=== PATIENT | male | born 1940 | race Caucasian/White ===

== ENCOUNTER 2022-02-17 13:03 | Emergency (ER) | payer MEDICARE, OTHER ==
[2022-02-17 13:43] LABS: BILIRUBIN,URINE NEGATIVE (NEGATIVE); GLUCOSE, URINE (UA) NEGATIVE (NEGATIVE); KETONES,URINE (UA) NEGATIVE (NEGATIVE); LEUKOCYTE ESTERASE, URINE NEGATIVE (NEGATIVE); NITRITE,URINE NEGATIVE (NEGATIVE); OCCULT BLOOD,URINE NEGATIVE (NEGATIVE); PH,URINE 5.5 PH (5.0-7.5); PROTEIN,URINE NEGATIVE (NEGATIVE); UROBILINOGEN,URINE 0.2 (NORMAL) E.U./dL (NORMAL)
[2022-02-17 13:48] LABS: BACTERIA,URINE None Seen /HPF (None Seen); CLARITY,URINE CLEAR (CLEAR); RBC,URINE None Seen /HPF (0-5); SQUAMOUS EPITHELIAL CELL,UR FEW Squamous (<= Few); WBC,URINE 0-3 /HPF (0-3)
--- NOTE | 2022-02-17 15:22 | ED Physician Documentation ---
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) Timing - duration: Hours Timing - details: Abrupt onset, Still present Pain level max: 9 Pain level now: 9 Location: Mid, Lower, Left Quality: Pain, Sharp, Aching Associated symptoms: No: Fever, Weakness, Numbness Improves with: No: Rest Worsened by: No: Movement, Lifting Contributing factors: No: Lifting, Twisting, Trauma Similar symptoms before: Diagnosis (similar to prior kidney stone, with last one about 15 years ago.) Recently seen: Not recently seen Review of Systems Constitutional: denies: Fever, Chills Nose: denies: Rhinorrhea / runny nose, Congestion Throat: denies: Sore throat Respiratory: denies: Cough GI: reports: Abdominal Pain, Nausea, Vomiting. denies: Constipation, Diarrhea : denies: Dysuria, Frequency Skin: denies: Rash, Lesions PD PAST MEDICAL HISTORY - Past Medical History Cardiovascular: Hypertension Respiratory: None Neuro: None Endocrine/Autoimmune: None : Kidney stones - Present Medications Home Medications: Ambulatory Orders Medication Instructions Recorded Confirmed Naproxen 500 mg PO BID #15 tab.sr 02/17/22 Ondansetron Odt [Zofran] 4 mg TL Q6H PRN #10 tablet 02/17/22 Oxycodone HCl/Acetaminophen 1 each PO Q6H PRN #14 tablet 02/17/22 [Percocet 5-325 mg Tablet] Tamsulosin [Flomax] 0.4 mg PO DAILY #5 cap 02/17/22 - Allergies Allergies/Adverse Reactions: Allergies Allergy/AdvReac Type Severity Reaction Status Date / Time Penicillins Allergy Rash Verified 02/17/22 13:25 PD ED PE NORMAL - Vitals Vital signs reviewed: Yes - General General: Alert and oriented X 3, Well developed/nourished, Other (appears in considerable pain.) - Cardiac Cardiac: RRR, No murmur - Respiratory Respiratory: Clear bilaterally - Abdomen Abdomen: Normal bowel sounds, Soft, Non tender, Non distended, Other (normal femoral pulses) - Back Back: Other (moderate left CVA tenderness to percussion. ) - Derm Derm: Normal color, Warm and dry, No rash - Neuro Neuro: Alert and oriented X 3, No motor deficit, No sensory deficit, Normal speech Results - Vitals Vitals: Vital Signs - 24 hr 02/17/22 02/17/22 16:09 16:30 Heart Rate 65 66 Respiratory 14 14 Rate Blood Pressure 128/64 128/65 O2 Saturation 97 96 Oxygen O2 Source Room air - Labs Labs: Laboratory Tests 02/17/22 02/17/22 02/17/22 13:40 15:45 15:45 WBC 13.4 H RBC 4.41 L Hgb 14.0 Hct 40.6 L MCV 92.1 MCH 31.7 H MCHC 34.5 RDW 12.8 Plt Count 243 MPV 10.2 Neut # (Auto) 10.6 H Lymph # (Auto) 1.5 [place] # (Auto) 1.0 Eos # (Auto) 0.1 Baso # (Auto) 0.0 Absolute Nucleated RBC 0.00 Nucleated RBC % 0.0 Sodium 134 L Potassium 4.3 Chloride 100 L Carbon Dioxide 23 Anion Gap 11.0 BUN 29 H Creatinine 1.2 Estimated GFR (MDRD) 58 L Glucose 128 H Calcium 9.4 Urine Color YELLOW Urine Clarity CLEAR Urine pH 5.5 Ur Specific [place] >=1.030 H Urine Protein NEGATIVE Urine Glucose (UA) NEGATIVE Urine Ketones NEGATIVE Urine Occult Blood NEGATIVE Urine Nitrite NEGATIVE Urine Bilirubin NEGATIVE Urine Urobilinogen 0.2 (NORMAL) Ur Leukocyte Esterase NEGATIVE Urine RBC None Seen Urine WBC 0-3 Ur Squamous Epith Cells FEW Squamous Urine Bacteria None Seen - Rads (name of study) KUB CT Radiology: Prelim report reviewed (4 mm distal left ureteral stone with moderate hydro. Bilateral nonobstructing renal stones. ), See rad report PD MEDICAL DECISION MAKING - ED course Complexity details: reviewed results (4 mm left distal ureteral stone with mild hydronephrosis. ), re-evaluated patient (pain greatly improved with IV meds. Minimal pain now and declines further meds in ED. ), considered differential (sounds and he feels like kidney stone. Was 2 hour delay in waiting room due to ER staffing shortage. Patient understanding and polite. ), d/w patient Departure - Departure Disposition: 01 Home, Self Care Clinical Impression: Left flank pain, Ureterolithiasis Condition: Stable Record reviewed to determine appropriate education?: Yes Instructions: ED Stone Renal W Colic Prescriptions: Tamsulosin [Flomax] 0.4 mg PO DAILY #5 cap Naproxen 500 mg PO BID #15 tab.sr Oxycodone HCl/Acetaminophen [Percocet 5-325 mg Tablet] 1 each PO Q6H PRN #14 tablet PRN Reason: pain Ondansetron Odt [Zofran] 4 mg TL Q6H PRN #10 tablet PRN Reason: Nausea / Vomiting Comments: It isYour CT scan does confirm a kidney stone passing on the left ureter. Almost to the bladder and is small at just under 4 mm. There is a mild amount of back pressure swelling to the kidney. Your urine test does not show any signs of infection. It is good that your pain is improved and sorry it took so long for us to get you out of the waiting room. We typically treat the kidney stones with anti- inflammatories and tamsulosin to reduce ureteral spasming. To that stay well-hydrated and add ondansetron if needed for nausea. Add Tylen ol or oxycodone/acetaminophen if needed for worse pains. The majority of stones of this size will pass over 2 to 3 days. Follow-up if not improved well completely after 3 to 5 days return sooner if severe pain despite medications. I transmitted prescriptions to [facility] in [place]. I am prescribing a short course of narcotic pain medication for you. These are potentially dangerous and addictive medications that should be used carefully. These medications may constipate you. Take an [id number] stool softener such as docusate twice daily with plenty of water while taking these medications. If you go 24 hours without a bowel movement, take ejpe-[id number] MiraLAX, per package instructions. Do not drink or drive while taking these medications. If you received narcotic or sedating medications while in the emergency department do not drive for 24 hours. Store this medication in a safe, secure place and out of reach of children. It is a violation of federal law to give or sell this medication to another person or to use in a manner other than prescribed. The ED will not refill narcotic prescriptions, including prescriptions lost or stolen. You can dispose of unwanted medications at the [facility]'s office or at several pharmacies such as [facility]. Discharge Date/Time: 02/17/22 17:03
[2022-02-17] MEDS ORDERED: KETOROLAC 15 MG/ML VIAL IVP STA (15:34)
[2022-02-17] MEDS ORDERED: HYDROmorphone 1 MG/ML CARPUJECT IVP STA (15:34)
[2022-02-17] MEDS ORDERED: SODIUM CHLORIDE 0.9% 1,000 ML IV STA (15:34)
[2022-02-17] MEDS ORDERED: ONDANSETRON 4 MG/2 ML VIAL IVP STA (15:34)
[2022-02-17 15:50] LABS: BASOPHILS % (AUTO) 0.2 %; EOSINOPHILS # (AUTO) 0.1 10^3/uL (0.0-0.7); EOSINOPHILS % (AUTO) 0.7 %; HCT - HEMATOCRIT 40.6 % (42.0-52.0); LYMPHOCYTES # (AUTO) 1.5 10^3/uL (1.5-3.5); LYMPHOCYTES % (AUTO) 11.2 %; MEAN CORPUSCULAR HEMOGLOBIN 31.7 pg (27.0-31.0); MEAN CORPUSCULAR HGB CONC 34.5 g/dL (32.0-36.0); MEAN CORPUSCULAR VOLUME 92.1 fL (80.0-94.0); MEAN PLATELET VOLUME 10.2 fL (7.4-11.4); MONOCYTES % (AUTO) 7.7 %; NEUTROPHILS # (AUTO) 10.6 10^3/uL (1.5-6.6); NEUTROPHILS % (AUTO) 79.6 %; PLT - PLATELET COUNT 243 10^3/uL (130-450); RED BLOOD COUNT 4.41 10^6/uL (4.70-6.10); RED CELL DISTRIBUTION WIDTH 12.8 % (12.0-15.0); WHITE BLOOD COUNT 13.4 x10^3/uL (4.8-10.8)
[2022-02-17 15:58] LABS: CALCIUM 9.4 mg/dL (8.5-10.3); CREATININE 1.2 mg/dL (0.6-1.2); POTASSIUM 4.3 mmol/L (3.5-5.0)
[2022-02-17] MEDS ORDERED: TAMSULOSIN 0.4 MG CAPSULE PO STA (16:26)
--- NOTE | 2022-02-17 16:29 | CT Report ---
PROCEDURE: Abdomen/Pelvis WO INDICATIONS: left flank pain onset today TECHNIQUE: Noncontrast 5 mm thick sections acquired from the diaphragms to the symphysis. 5 mm coronal and sagi ttal reformats were then performed. For radiation dose reduction, the following was used: automated exposure control, adjustment of mA and/or kV according to patient size. COMPARISON: None. FINDINGS: Image quality: Excellent. ABDOMEN: Lung bases: Lung bases are clear. Heart size is mildly enlarged with small amount of pericardial ef fusion. Solid organs: Liver and spleen are normal in size. Gallbladder is within normal limits Pancreas is normal in contours. No adrenal nodules. Kidneys are normal in size. Moderate left-sided hydronephro sis and left perinephric fat stranding is seen. Left hydroureter is also noted with a 4 mm stone in l eft distal ureter just proximal to left UVJ. Bilateral nonobstructing renal calculi are seen measures up to 4 mm in size in midpole of right kidney. No right-sided hydronephrosis. No right-sided hydrour eter. Peritoneum and bowel: Unenhanced bowel loops demonstrate normal wall thickness and caliber. No free fluid or air. Extensive sigmoid diverticulosis is noted without colonic wall thickening or pericolo hazel fat stranding. Nodes and vessels: No retroperitoneal or mesenteric adenopathy by size criteria. Aorta and inferior vena cava are normal in caliber. Mild to moderate atherosclerotic disease is seen in the abdominal aorta. Miscellaneous: No ventral hernias. PELVIS: Genitourinary: Bladder wall thickness is normal. Miscellaneous: No inguinal hernias or adenopathy. Bones: No suspicious bony lesions. No vertebral body compression fractures. Degenerative disc dise ase throughout lumbar spine is seen. IMPRESSION: 1. 4 mm left distal ureteral stone with moderate left-sided hydronephrosis and hydroureter and modera te left perinephric fat stranding. 2. Bilateral nonobstructing renal calculi as above. No right-sided hydronephrosis or hydroureter. Nor mal-appearing urinary bladder. 3. No bowel obstruction or abnormal bowel wall thickening. Sigmoid diverticulosis without evidence of acute diverticulitis. No free fluid of free air. 4. Mild cardiomegaly and small amount of pericardial effusion. Mild to moderate atherosclerotic disea se. Reviewed by: Nando Greene MD on 02/17/2022 4:27 PM PDT Approved by: Nando Greene MD on 02/17/2022 4:27 PM PDT Station ID: [id number]
[2022-02-17 16:40] VITALS: BP 128/65
== END 2022-02-17 17:03 | disposition home or self-care (01) ==
LOC: ED 13:03
DX: N13.2 Hydronephrosis with renal and ureteral calculous obstruction (principal); I10 Essential (primary) hypertension
CPT/HCPCS: 36415; 74176; 80048; 81001; 85025; 96374; 99284; A9270; J1170

== ENCOUNTER 2022-10-07 17:09 | Outpatient (CLI) | payer MEDICARE, OTHER | END 2022-10-07 23:59 | disposition critical access hospital (66) | LOC: EMS 17:09 | DX: R53.1 Weakness (principal); R50.9 Fever, unspecified; R35.0 Frequency of micturition; R00.0 Tachycardia, unspecified | CPT/HCPCS: A0425; A0427 ==

== ENCOUNTER 2022-10-07 18:18 | Inpatient (IN) | payer MEDICARE, OTHER ==
[2022-10-07] MEDS ORDERED: SODIUM CHLORIDE 0.9% 1,000 ML IV STA (18:25)
--- NOTE | 2022-10-07 18:27 | ED Physician Documentation ---
PD HPI FEVER - Stated complaint Stated Complaint: WEAKNESS, FEVER, URINARY FREQUENCY - History obtained from History obtained from: Patient, EMS - Additional information Additional information: 81-year-old gentleman with prediabetes, gout, hypercholesterolemia, hypertension. He was in [facility] and went back to [place] 9 days ago and has been back here for 2 days. For the last 2 days he started to feel ill with general weakness. Today he was too weak to do anything including get out of bed. EMS was summoned and he had a temperature of 102.4 and a blood pressure of 90/60. He denies cough. Has a mild sore throat. He has prominent urinary frequency without dysuria. PD PAST MEDICAL HISTORY - Past Medical History Cardiovascular: Hypertension Respiratory: None Neuro: None Endocrine/Autoimmune: None : Kidney stones - Present Medications Home Medications: Ambulatory Orders Medication Instructions Recorded Confirmed Naproxen 500 mg PO BID #15 tab.sr 02/17/22 Ondansetron Odt [Zofran] 4 mg TL Q6H PRN #10 tablet 02/17/22 Oxycodone HCl/Acetaminophen 1 each PO Q6H PRN #14 tablet 02/17/22 [Percocet 5-325 mg Tablet] Tamsulosin [Flomax] 0.4 mg PO DAILY #5 cap 02/17/22 - Allergies Allergies/Adverse Reactions: Allergies Allergy/AdvReac Type Severity Reaction Status Date / Time Penicillins Allergy Rash Verified 10/07/22 18:31 PD ED PE NORMAL - Vitals Vital signs reviewed: Yes - General General: Alert and oriented X 3, No acute distress - HEENT HEENT: PERRL, EOMI - Neck Neck: Supple, no meningeal sign, No bony TTP - Cardiac Cardiac: No murmur, Other (Mild resting tachycardia) - Respiratory Respiratory: No respiratory distress, Clear bilaterally - Abdomen Abdomen: Non tender - Derm Derm: Normal color, Warm and dry, No rash - Extremities Extremities: No edema, No calf tenderness / cord - Neuro Neuro: Alert and oriented X 3, Normal speech Results - Vitals Vitals: Vital Signs - 24 hr 10/07/22 10/07/22 10/07/22 18:25 18:28 18:55 Temperature 37.9 C Heart Rate 102 H 96 Respiratory 16 17 Rate Blood Pressure 111/72 120/73 104/66 O2 Saturation 94 96 10/07/22 10/07/22 10/07/22 19:55 21:00 21:45 Temperature 37.2 C 37.4 C Heart Rate 95 95 99 Respiratory 18 17 18 Rate Blood Pressure 110/70 101/54 L 100/58 L O2 Saturation 98 95 96 Oxygen O2 Source Room air - Labs Labs: Laboratory Tests 10/07/22 10/07/22 10/07/22 18:36 18:36 18:36 WBC 16.2 H RBC 4.09 L Hgb 12.3 L Hct 37.9 L MCV 92.7 MCH 30.1 MCHC 32.5 RDW 13.1 Plt Count 228 MPV 10.4 Neut # (Auto) 14.7 H Lymph # (Auto) 0.6 L [place] # (Auto) 0.5 Eos # (Auto) 0.2 Baso # (Auto) 0.0 Absolute Nucleated RBC 0.00 Nucleated RBC % 0.0 RBC Morph Micro Appear NORMAL APPEARANCE Sodium 135 Potassium 3.5 Chloride 102 Carbon Dioxide 21 Anion Gap 12.0 BUN 26 H Creatinine 1.2 Estimated GFR (MDRD) 58 L Glucose 186 H Lactic Acid 1.9 Calcium 8.5 Total Bilirubin 0.7 AST 57 H ALT 169 H Alkaline Phosphatase 162 H Total Protein 6.5 L Albumin 3.1 L Globulin 3.4 Albumin/Globulin Ratio 0.9 L Urine Color Urine Clarity Urine pH Ur Specific [place] Urine Protein Urine Glucose (UA) Urine Ketones Urine Occult Blood Urine Nitrite Urine Bilirubin Urine Urobilinogen Ur Leukocyte Esterase Urine RBC Urine WBC Ur Squamous Epith Cells Urine Bacteria Urine Casts Urine Culture Comments Nasal Adenovirus (PCR) Nasal B. parapertussis DNA (PCR) Nasal Coronavir 229E PCR Nasal Coronavir HKU1 PCR Nasal Coronavir NL63 PCR Nasal Coronavir OC43 PCR Nasal Enterovir/Rhinovir PCR Nasal Influenza B PCR Nasal Influenza A PCR Nasal Parainfluen 1 PCR Nasal Parainfluen 2 PCR Nasal Parainfluen 3 PCR Nasal Parainfluen 4 PCR Nasal RSV (PCR) Nasal B.pertussis DNA PCR Nasal C.pneumoniae (PCR) [place] Human Metapneumo PCR Nasal M.pneumoniae (PCR) Nasal SARS-CoV-2 (PCR) 10/07/22 10/07/22 18:50 19:35 WBC RBC Hgb Hct MCV MCH MCHC RDW Plt Count MPV Neut # (Auto) Lymph # (Auto) [place] # (Auto) Eos # (Auto) Baso # (Auto) Absolute Nucleated RBC Nucleated RBC % RBC Morph Micro Appear Sodium Potassium Chloride Carbon Dioxide Anion Gap BUN Creatinine Estimated GFR (MDRD) Glucose Lactic Acid Calcium Total Bilirubin AST ALT Alkaline Phosphatase Total Protein Albumin Globulin Albumin/Globulin Ratio Urine Color DARK YELLOW Urine Clarity CLEAR Urine pH 6.0 Ur Specific [place] 1.020 Urine Protein 30 H Urine Glucose (UA) NEGATIVE Urine Ketones NEGATIVE Urine Occult Blood NEGATIVE Urine Nitrite NEGATIVE Urine Bilirubin NEGATIVE Urine Urobilinogen 0.2 (NORMAL) Ur Leukocyte Esterase NEGATIVE Urine RBC None Seen Urine WBC 0-3 Ur Squamous Epith Cells RARE Squamous Urine Bacteria None Seen Urine Casts 0-2 Hyaline Casts Urine Culture Comments NOT INDICATED Nasal Adenovirus (PCR) NOT DETECTED Nasal B. parapertussis DNA (PCR) NOT DETECTED Nasal Coronavir 229E PCR NOT DETECTED Nasal Coronavir HKU1 PCR NOT DETECTED Nasal Coronavir NL63 PCR NOT DETECTED Nasal Coronavir OC43 PCR NOT DETECTED Nasal Enterovir/Rhinovir PCR NOT DETECTED Nasal Influenza B PCR NOT DETECTED Nasal Influenza A PCR NOT DETECTED Nasal Parainfluen 1 PCR NOT DETECTED Nasal Parainfluen 2 PCR NOT DETECTED Nasal Parainfluen 3 PCR NOT DETECTED Nasal Parainfluen 4 PCR NOT DETECTED Nasal RSV (PCR) NOT DETECTED Nasal B.pertussis DNA PCR NOT DETECTED Nasal C.pneumoniae (PCR) NOT DETECTED Lance Human Metapneumo PCR NOT DETECTED Nasal M.pneumoniae (PCR) NOT DETECTED Nasal SARS-CoV-2 (PCR) NOT DETECTED PD Medical Decision Making - ED course ED course: 81-year-old gentleman has been sick for few days with worsening fevers and now weakness. Quite a high fever at home and low blood pressure prior to arrival. Combined with the elevated white count does fit sepsis physiology. On initial history and physical, most likely source was urine given his urinary frequency and lack of other symptoms. That said his urinalysis is reviewed and negative. CBC reviewed with mild anemia with moderate leukocytosis at 16,000 and left shift. Lactate normal. CMP reviewed with elevated BUN consistent with prerenal azotemia and elevated liver enzymes with normal bilirubin. This could be consistent with a biliary source of infection such as choledocholithiasis or cholecystitis. That said he has absolutely no right upper quadrant pain or tenderness. Will order ultrasound anyway and administer broad-spectrum antibiotics noting penicillin allergy with Cipro and Flagyl. Malaria could also cause this constellation of symptoms and lab findings. According to CDC website malaria is pretty uncommon in that area of [place] but not completely unheard of. We will add on thick and thin smears. Given the concern for sepsis, I presented the case to Dr. Lugo of [facility] who will admit. Departure - Departure Disposition: ED Place in Observation Clinical Impression: Sepsis Qualifiers: Sepsis type: sepsis due to unspecified organism Sepsis acute organ dysfunction status: without acute organ dysfunction Qualified Code(s): A41.9 - Sepsis, unspecified organism Condition: Stable
[2022-10-07 18:43] LABS: BASOPHILS % (AUTO) 0.2 %; EOSINOPHILS # (AUTO) 0.2 10^3/uL (0.0-0.7); EOSINOPHILS % (AUTO) 1.2 %; HCT - HEMATOCRIT 37.9 % (42.0-52.0); HGB - HEMOGLOBIN 12.3 g/dL (14.0-18.0); LYMPHOCYTES # (AUTO) 0.6 10^3/uL (1.5-3.5); LYMPHOCYTES % (AUTO) 3.8 %; MEAN CORPUSCULAR HEMOGLOBIN 30.1 pg (27.0-31.0); MEAN CORPUSCULAR HGB CONC 32.5 g/dL (32.0-36.0); MEAN CORPUSCULAR VOLUME 92.7 fL (80.0-94.0); MEAN PLATELET VOLUME 10.4 fL (7.4-11.4); MONOCYTES # (AUTO) 0.5 10^3/uL (0.0-1.0); MONOCYTES % (AUTO) 3.3 %; NEUTROPHILS # (AUTO) 14.7 10^3/uL (1.5-6.6); NEUTROPHILS % (AUTO) 90.9 %; PLT - PLATELET COUNT 228 10^3/uL (130-450); RED BLOOD COUNT 4.09 10^6/uL (4.70-6.10); RED CELL DISTRIBUTION WIDTH 13.1 % (12.0-15.0); WHITE BLOOD COUNT 16.2 x10^3/uL (4.8-10.8)
--- NOTE | 2022-10-07 18:45 | XRAY Report ---
PROCEDURE: Chest 1 View X-Ray INDICATIONS: fever TECHNIQUE: One view of the chest was acquired. COMPARISON: None. FINDINGS: Surgical changes and devices: None. Lungs and pleura: On the semiupright images, no large pneumothorax or large pleural effusions can be seen. No focal infiltrates are seen. Low lung volumes can be seen, causing a crowded appearance to t he lung markings. Mediastinum: Mediastinal contours appear normal. Heart size is normal. Bones and chest wall: No suspicious bony lesions. Age-appropriate degenerative changes are seen. Overlying soft tissues appear unremarkable. IMPRESSION: Low lung volumes, without infiltrates seen. Reviewed by: Ramone Guadarrama MD on 10/07/2022 5:44 PM [facility] Approved by: Ramone Guadarrama MD on 10/07/2022 5:44 PM [facility] Station ID: [id number]
[2022-10-07 18:59] LABS: ALBUMIN 3.1 g/dL (3.2-5.5); ALBUMIN/GLOBULIN RATIO 0.9 (1.0-2.2); BILIRUBIN,TOTAL 0.7 mg/dL (0.2-1.0); CALCIUM 8.5 mg/dL (8.5-10.3); CREATININE 1.2 mg/dL (0.6-1.2); POTASSIUM 3.5 mmol/L (3.5-5.0); TOTAL PROTEIN 6.5 g/dL (6.7-8.2)
[2022-10-07 19:49] LABS: BILIRUBIN,URINE NEGATIVE (NEGATIVE); GLUCOSE, URINE (UA) NEGATIVE (NEGATIVE); KETONES,URINE (UA) NEGATIVE (NEGATIVE); LEUKOCYTE ESTERASE, URINE NEGATIVE (NEGATIVE); NITRITE,URINE NEGATIVE (NEGATIVE); OCCULT BLOOD,URINE NEGATIVE (NEGATIVE); PROTEIN,URINE 30 mg/dL (NEGATIVE); UROBILINOGEN,URINE 0.2 (NORMAL) E.U./dL (NORMAL)
[2022-10-07 20:00] LABS: CLARITY,URINE CLEAR (CLEAR); RBC,URINE None Seen /HPF (0-5); WBC,URINE 0-3 /HPF (0-3)
[2022-10-07 20:01] LABS: BACTERIA,URINE None Seen /HPF (None Seen); CASTS, URINE 0-2 Hyaline Casts /LPF; SQUAMOUS EPITHELIAL CELL,UR RARE Squamous (<= Few)
[2022-10-07 20:03] LABS: B. PARAPERTUSSIS- RESP PCR PAN NOT DETECTED; B. PERTUSSIS- RESP PCR PANEL NOT DETECTED; C. PNEUMONIAE- RESP PCR PANEL NOT DETECTED; CORONAVIRUS 229E-RESP PCR NOT DETECTED; CORONAVIRUS HKU1-RESP PCR NOT DETECTED; CORONAVIRUS NL63-RESP PCR NOT DETECTED; CORONAVIRUS OC43-RESP PCR NOT DETECTED; HUMAN METAPNEUMOVIRUS NOT DETECTED; INFLUENZA A- RESP PCR PANEL NOT DETECTED; INFLUENZA B - RESP PCR PANEL NOT DETECTED; M. PNEUMONIAE- RESP PCR PANEL NOT DETECTED; PARAINFLUENZA VIRUS 1 NOT DETECTED; PARAINFLUENZA VIRUS 2 NOT DETECTED; PARAINFLUENZA VIRUS 3 NOT DETECTED; PARAINFLUENZA VIRUS 4 NOT DETECTED; RHINOVIRUS/ENTEROVIRUS NOT DETECTED; RSV- RESP PCR PANEL NOT DETECTED; SARS-CoV-2 -RESP PCR PANEL NOT DETECTED
[2022-10-07] MEDS ORDERED: metroNIDAZOLE 500 MG/100 ML 500 MG/100 ML BAG IV ONE (20:10)
[2022-10-07] MEDS ORDERED: CIPROFLOXACIN 400 MG/200 ML 400 MG/200 ML BAG IV STA (20:10)
--- NOTE | 2022-10-07 21:39 | Ultrasound Report ---
PROCEDURE: Abdomen Limited INDICATIONS: fever, elev liver enz TECHNIQUE: Real-time focused scanning was performed of the abdomen, with image documentation. COMPARISON: 02/17/2022 CT abdomen/pelvis FINDINGS: The liver is normal in size but shows increased echotexture consistent with mild fatty inf iltration. Direction of blood flow into the liver is normal. The gallbladder wall is slightly above t he upper limits of normal at 3.2 mm but no adjacent pericholecystic free fluid or definite focal tend erness during sonographic palpation of the bladder was seen. The common hepatic duct and common bile duct are normal in caliber at 1.9 mm and 4.2 mm, respectively . The pancreas appears free of mass or ductal distention. The right kidney appears normal. IMPRESSION: Fatty infiltration throughout the liver, mild. No biliary distention found. The gallbladder wall is o nly slightly above the upper limits of normal in size at 3.2 mm. No calculus within the gallbladder o r bile ducts is seen. Reviewed by: Calos Piña MD on 10/07/2022 9:38 PM PST Approved by: Calos Piña MD on 10/07/2022 9:38 PM PST Station ID: [id number]
[2022-10-07 22:06] LABS: RBC MORPHOLOGY (MULTIPLE) NORMAL APPEARANCE (NORMAL)
[2022-10-07] MEDS ORDERED: IBUPROFEN 600 MG TABLET PO STA (22:20)
[2022-10-07] MEDS ORDERED: DEXTROSE 5%-LACTATED RINGERS 1,000 ML IV SCH (23:00)
[2022-10-07 23:48] LABS: RAPID STREP SCREEN Negative (Negative)
--- NOTE | 2022-10-08 00:14 | HISTORY & PHYSICAL EXAMINATION ---
Chief Complaint - Chief Complaint Chief Complaint: generalized weakness, urinary frequency, sore throat History of Present Illness - History of Present Illness HPI Comment/Other: pt presents with generalized weakness and malaise that started about 3-4 days ago after returning from recent trip to [place]. he and his family stayed at a resort and drank bottled water and ate food what was served in good restaurants and well cooked. no outside food or street foods. no contact with animals or any other sick individuals. pt is up to date on his vaccines, and per , they only state in the "tourist-like" areas. pt denies any abdominal pain but has had occasional body aches. no diarrhea. no dysuria but he feels the urge to urinate more and urine is dark. no chest pain or sob. he does have sore throat and reports feeling his tongue swollen. some nausea. no recent falls but states that he was so weak that he had difficulty lifting up his head from the bed earlier today. History - Past Medical History Cardiovascular: reports: Hypertension Respiratory: reports: None Neuro: reports: None Endocrine/Autoimmune: reports: None : reports: Kidney stones Other Past Medical History: prediabetic Meds/Allgy - Home Medications Home Medications: Ambulatory Orders Medication Instructions Recorded Confirmed Naproxen 500 mg PO BID #15 tab.sr 02/17/22 Ondansetron Odt [Zofran] 4 mg TL Q6H PRN #10 tablet 02/17/22 Oxycodone HCl/Acetaminophen 1 each PO Q6H PRN #14 tablet 02/17/22 [Percocet 5-325 mg Tablet] Tamsulosin [Flomax] 0.4 mg PO DAILY #5 cap 02/17/22 - Allergies Allergies/Adverse Reactions: Allergies Allergy/AdvReac Type Severity Reaction Status Date / Time Penicillins Allergy Rash Verified 10/07/22 18:31 Review of Systems - Other Findings Other Findings: 14 pt review done with positives per hpi; all others reviewed as negative Exam - Vital Signs Reviewed Vital Signs: Yes Vital Signs: Vital Signs x48h Temp Pulse Resp BP Pulse Ox 10/07/22 23:00 106 H 18 122/62 94 10/07/22 22:20 38.1 C H 99 17 104/64 96 10/07/22 21:45 37.4 C 99 18 100/58 L 96 10/07/22 21:00 95 17 101/54 L 95 10/07/22 19:55 37.2 C 95 18 110/70 98 10/07/22 18:55 96 17 104/66 96 10/07/22 18:28 37.9 C 102 H 16 120/73 94 10/07/22 18:25 111/72 - Physical Exam Comments/Other: gen - aaox3, uncomfortable but cooperative with questions, at bedside heent - erythema of throat with some white patches, dry mucosae heart - tachy lungs - ctab abd - soft, bsx4, overall nontender msk - no acute traume Conclusion/Plan - Lab Results Fish Bones: 10/08/22 01:00 10/08/22 01:00 - Other Other Results/Comments: pt with - - sepsis leukocytosis, low BP, infection, tachycardia f/u lactate, cultures unclear source at this time viral panel NEG on cipro and flagyl strep test NEG (below) hepatitis panel pending check urine cultures supportive mgmt - transaminitis unclear etiology abd sono shows fatty liver and now obvious stones or evidence of cholecystitis check hepatitis panel may also be d/t shock injury d/t low BPs thick / thin smears for malaria returned back NEG check CT abd/pelvis avoid hepatotoxins - generalized weakness in setting of above PT / OT eval and treat supportive mgmt CK NEG - hyperglycemia glucose in 180s no reported h/o t2dm check a1c, tsh, lipid panel - pharyngitis strep test NEG related to above and possibly viral in nature symptomatic mgmt - urinary frequency denies dysuria UA NEG continue with cipro and flagyl f/u urine cultures f/u labs, cultures, replete electrolytes further orders per clinical course
[2022-10-08] MEDS ORDERED: SODIUM CHLORIDE FLUSH 0.9% 10 ML SYRINGE IVP PRN (00:43)
[2022-10-08] MEDS ORDERED: SODIUM CHLORIDE 0.65% NASAL SPRAY NAS PRN (00:55)
[2022-10-08] MEDS ORDERED: GI COCKTAIL 120 ML BOTTLE PO PRN (00:56)
[2022-10-08 01:07] LABS: CHOL/HDL RATIO 2.5 (<5.0); CHOLESTEROL 132 mg/dL; HDL CHOLESTEROL 53 mg/dL; LDL CHOLESTEROL,CALCULATED 59 mg/dL; LDL/HDL RATIO 1.1 (<3.6); TRIGLYCERIDES 99 mg/dL; VLDL CHOLESTEROL 20 mg/dL
[2022-10-08 01:09] LABS: BASOPHILS % (AUTO) 0.2 %; EOSINOPHILS # (AUTO) 0.3 10^3/uL (0.0-0.7); EOSINOPHILS % (AUTO) 1.9 %; HCT - HEMATOCRIT 35.5 % (42.0-52.0); HGB - HEMOGLOBIN 11.8 g/dL (14.0-18.0); LYMPHOCYTES # (AUTO) 0.6 10^3/uL (1.5-3.5); LYMPHOCYTES % (AUTO) 4.1 %; MEAN CORPUSCULAR HEMOGLOBIN 30.6 pg (27.0-31.0); MEAN CORPUSCULAR HGB CONC 33.2 g/dL (32.0-36.0); MEAN CORPUSCULAR VOLUME 92.2 fL (80.0-94.0); MEAN PLATELET VOLUME 10.5 fL (7.4-11.4); MONOCYTES # (AUTO) 0.4 10^3/uL (0.0-1.0); MONOCYTES % (AUTO) 2.7 %; NEUTROPHILS # (AUTO) 12.9 10^3/uL (1.5-6.6); NEUTROPHILS % (AUTO) 90.5 %; PLT - PLATELET COUNT 200 10^3/uL (130-450); RED BLOOD COUNT 3.85 10^6/uL (4.70-6.10); RED CELL DISTRIBUTION WIDTH 13.2 % (12.0-15.0); WHITE BLOOD COUNT 14.3 x10^3/uL (4.8-10.8)
[2022-10-08 01:17] LABS: ALBUMIN 2.8 g/dL (3.2-5.5); ALBUMIN/GLOBULIN RATIO 0.9 (1.0-2.2); BILIRUBIN,TOTAL 0.9 mg/dL (0.2-1.0); CALCIUM 8.6 mg/dL (8.5-10.3); CREATININE 1.1 mg/dL (0.6-1.2); MAGNESIUM 1.6 mg/dL (1.7-2.8); POTASSIUM 3.5 mmol/L (3.5-5.0); TOTAL PROTEIN 5.9 g/dL (6.7-8.2)
[2022-10-08] MEDS ORDERED: iohexoL-300 100 ML VIAL ONE ×2 (01:43→01:59)
[2022-10-08] MEDS: LACTATED RINGERS 1,000 ML IV SCH ×3 (02:42→22:14)
[2022-10-08] MEDS: SODIUM CHLORIDE FLUSH 0.9% 10 ML SYRINGE IVP SCH ×3 (02:42→20:37)
[2022-10-08] MEDS: PHENOL THROAT SPRAY 177 ML MM PRN ×2 (02:56→06:41)
[2022-10-08] MEDS: metroNIDAZOLE 500 MG/100 ML 500 MG/100 ML BAG IV SCH ×3 (05:15→22:14)
[2022-10-08] MEDS: PANTOPRAZOLE 40 MG TABLET PO SCH (06:40)
[2022-10-08] MEDS: LACTOBACILLUS RHAMNOSUS GG CAPSULE PO SCH (08:37)
[2022-10-08] MEDS: IBUPROFEN 400 MG TABLET PO PRN ×2 (08:37→17:20)
[2022-10-08] MEDS: ZINC SULFATE 220 MG CAPSULE PO SCH (08:37)
[2022-10-08] MEDS: TAMSULOSIN 0.4 MG CAPSULE PO SCH (08:37)
[2022-10-08] MEDS: MULTIVITAMIN TABLET PO SCH (08:37)
[2022-10-08] MEDS: ASCORBIC ACID 500 MG TABLET PO SCH (08:37)
[2022-10-08] MEDS: CIPROFLOXACIN 400 MG/200 ML 400 MG/200 ML BAG IV SCH ×2 (08:38→20:37)
[2022-10-08] MEDS: ENOXAPARIN 40 MG/0.4 ML SYRINGE SUBQ SCH (08:38)
[2022-10-08] MEDS: CHOLECALCIFEROL 400 UNIT TABLET PO SCH (08:48)
--- NOTE | 2022-10-08 08:51 | CT Report ---
PROCEDURE: ABDOMEN/PELVIS W INDICATIONS: transaminitis, sepsis CONTRAST: 100 ML OMNI 300 TECHNIQUE: After the administration of IV contrast, 5 mm thick sections acquired from the diaphragms to the symp hysis. 5 mm thick coronal and sagittal reformats were acquired. For radiation dose reduction, the f ollowing was used: automated exposure control, adjustment of mA and/or kV according to patient size. COMPARISON: 02/17/2022. Correlation is also made with the accompanying abdominal ultrasound, 10/07/2022 . FINDINGS: Image quality: Excellent. ABDOMEN: Lung bases: Lung bases are clear. Heart size is normal. There is a mild pericardial effusion. Solid organs: Liver and spleen are normal in size and enhancement. Gallbladder wall does not appear thickened. Biliary system is non dilated. Pancreas enhances normally. No adrenal nodules. Kidneys demonstrate normal size and enhancement, without hydronephrosis. A 3 mm nonobstructing right -sided kidney stone can be seen. There is a 2 mm nonobstructing left-sided kidney stone. Left kidney simple appearing cysts can be seen, measuring water density. Peritoneum and bowel: Bowel loops demonstrate normal wall thickness and caliber. No free fluid or a ir. Diverticulosis can be seen, without yandel findings of active diverticulitis. Nodes and vessels: No retroperitoneal or mesenteric adenopathy by size criteria. Aorta and inferior vena cava are normal in size. Atherosclerotic calcification is seen. Miscellaneous: There is a mild fat-containing periumbilical hernia. PELVIS: Genitourinary: Bladder wall thickness is normal. Miscellaneous: No inguinal hernias or adenopathy. Bones: No suspicious bony lesions. No vertebral body compression fractures. Lower lumbar spine deg enerative changes are seen. Milder degenerative changes are seen elsewhere. IMPRESSION: No acute abnormality is seen. Additional findings: Mild pericardial effusion, as before. Nonobstructive bilateral renal stones Simple appearing left renal cyst Fat-containing peribuccal hernia Diverticulosis, without findings of active diverticulitis. Note: No significant discrepancy from the preliminary report. Reviewed by: Ramone Guadarrama MD on 10/08/2022 7:50 AM [facility] Approved by: Ramone Guadarrama MD on 10/08/2022 7:50 AM [facility] Station ID: [id number]
[2022-10-08 11:31] LABS: ESTIMATED AVERAGE GLUCOSE 140 mg/dL (70-100); HEMOGLOBIN A1c% 6.5 % (4.27-6.07)
[2022-10-08] MEDS: BENZOCAINE/MENTHOL LOZENGE MM PRN ×4 (11:44→21:28)
--- NOTE | 2022-10-08 13:13 | PHARMACY PROGRESS NOTE ---
- Best Possible Medication History Admit Date and Time: 10/08/22 0043 Processed by: Pharmacy Medication History completed: Yes Patient Interview: Completed Secondary Source(s): Pharmacy records, Insurance records As the person ultimately responsible for medication therapy, providers are able to order a medication from an existing home medication list in [facility] via the "Reconcile Routine" prior to Confirmation of that medication by help desk support. Such practice is discouraged except when the physician, in their clinical judgment, deems that a medical need exists for a medication without regard to previous use.
--- NOTE | 2022-10-08 15:05 | PROVIDER PROGRESS NOTE ---
Progress Note Therapy 2022 3:02 PM Nonbillable rounding. Patient was admitted in the early monitor hours of today. In checking up on him he just feels wiped out, and very weak. No appetite. His last temperature was at 1030 last night when he was 38.1. None since then. Otherwise vitals are staying stable. is in the room. Labs 1 AM show a bili of 0.9, AST 46, ALT 137. Hepatitis panel is pending A group A throat culture is pending Lactic acid level is now 1.7 A1c is 6.5% Sepsis criteria met on admission with elevated white cell count, hypotension, hepatitis, tachycardia. He is on empiric antibiotics with Cipro and Flagyl. CT of the abdomen is benign. So far this gentleman is responding to treatment. Although he still feels weak. Will await hepatitis panel for possible hepatitis A considering his recent travel. Diabetes mellitus. Start sliding scale insulin. Pharyngitis, await culture result. Exam today is negative Urgency and frequency have resolved
[2022-10-08] MEDS: INSULIN LISPRO 300 UNIT/3 ML PEN SUBQ SCH ×2 (17:16→21:28)
[2022-10-09] MEDS: SODIUM CHLORIDE FLUSH 0.9% 10 ML SYRINGE IVP SCH ×3 (02:11→17:05)
[2022-10-09] MEDS ORDERED: diltiaZEM INJ 5 MG/ML VIAL IVP ONE (02:25)
--- NOTE | 2022-10-09 02:29 | PROVIDER PROGRESS NOTE ---
Hospitalist Cross-cover Note - Cross-Cover Note Cross-Cover Note: A fib RVR Per RN HR 120s A fib on telemetry. No prior known documentation of A fib. BP 101/55. Afebrile. O2 94% RA. Diltiazem IV x 1 dose ordered. Consider drip pending rate control. EKG and electrolyte labs ordered. Further discussion regarding a/c in a.m. w primary team. Michael Pinedo MD Telemedicine Hospitalist
[2022-10-09] MEDS: IBUPROFEN 400 MG TABLET PO PRN ×3 (03:31→23:43)
[2022-10-09] MEDS: metroNIDAZOLE 500 MG/100 ML 500 MG/100 ML BAG IV SCH ×3 (05:05→21:42)
[2022-10-09 05:36] LABS: CALCIUM 8.4 mg/dL (8.5-10.3); CREATININE 1.1 mg/dL (0.6-1.2); MAGNESIUM 1.8 mg/dL (1.7-2.8); POTASSIUM 3.4 mmol/L (3.5-5.0)
[2022-10-09] MEDS: MULTIVITAMIN TABLET PO SCH (07:59)
[2022-10-09] MEDS: INSULIN LISPRO 300 UNIT/3 ML PEN SUBQ SCH ×4 (07:59→20:33)
[2022-10-09] MEDS: PANTOPRAZOLE 40 MG TABLET PO SCH (07:59)
[2022-10-09] MEDS: diltiaZEM CD 180 MG CAPSULE PO SCH (09:38)
[2022-10-09] MEDS: LACTOBACILLUS RHAMNOSUS GG CAPSULE PO SCH (09:38)
[2022-10-09] MEDS: ASCORBIC ACID 500 MG TABLET PO SCH (09:38)
[2022-10-09] MEDS: CHOLECALCIFEROL 400 UNIT TABLET PO SCH (09:38)
[2022-10-09] MEDS: TAMSULOSIN 0.4 MG CAPSULE PO SCH (09:38)
[2022-10-09] MEDS: ZINC SULFATE 220 MG CAPSULE PO SCH (09:38)
[2022-10-09] MEDS: CIPROFLOXACIN 400 MG/200 ML 400 MG/200 ML BAG IV SCH ×2 (09:39→20:39)
[2022-10-09] MEDS: ENOXAPARIN 40 MG/0.4 ML SYRINGE SUBQ SCH (09:39)
[2022-10-09] MEDS ORDERED: allopurinoL 100 MG TABLET PO SCH (10:00)
[2022-10-09] MEDS ORDERED: lisinopriL 5 MG TABLET PO SCH (10:00)
[2022-10-09] MEDS ORDERED: ZINC OXIDE 20% OINT 30 GM TUBE TOP PRN (10:56)
[2022-10-09] MEDS ORDERED: POTASSIUM CHLORIDE 20 MEQ TABLET PO ONE (11:07)
[2022-10-09] MEDS: LACTATED RINGERS 1,000 ML IV SCH (11:28)
--- NOTE | 2022-10-09 12:31 | PROVIDER PROGRESS NOTE ---
Subjective - Prog Note Date Prog Note Date: 10/09/22 Prog Note Time: 12:29 - Subjective Pt reports feeling: Improved (Patient reports feeling better and able to get out of his bed. Patients reports no fever, normal bowel movements and return of appetite.) Subjective: Bud presented today on his chair care and in no acute distress. Patient reported feeling much better today and satisfied with his care at the hospital. Patient complains of cough w/production and diaphoresis in the middle of the night. Patient denies fever, headache, congestion, shortness of breath, chest pain, abdominal pain, nausea, vomiting, diarrhea, abnormal bowel movements, and decreased appetite. During visit, patient mentioned that he woke up diaphoretic but with no shortness of breath. Telemedicine was utilized at 0227 with Michael Pinedo being the physician forestry extension specialist. Patient's heart rate was in the 120's with atrial fibrillation on telemetry. Diltiazem was given to patient and heart rate has since stabilized. Patient's heart rate was 80bpm and regular during visit at 1300 10/09/2022. Patients electrolyte and vitals to be monitored and electroc ardiogram ordered, awaiting results. Anticoagulation medication may be required. Patient to remain finish course of antibiotics (Ciprofloxacin and metronidazole) to address possible source of infection and awaiting Hepatitis A lab results. Current Medications - Current Medications Current Medications: Active Medications Allopurinol (Allopurinol 100 Mg Tablet) 300 mg PO QPM [facility] Ascorbic Acid (Ascorbic Acid 500 Mg Tablet) 500 mg PO DAILY [facility] Last Admin: 10/09/22 09:38 Dose: 500 mg Atorvastatin Calcium (Atorvastatin 10 Mg Tablet) 20 mg PO QPM [facility] Cholecalciferol (Cholecalciferol 400 Unit Tablet) 400 unit PO DAILY [facility] Last Admin: 10/09/22 09:38 Dose: 400 unit Diltiazem HCl (Diltiazem Cd 180 Mg Capsule) 180 mg PO DAILY [facility] Last Admin: 10/09/22 09:38 Dose: 180 mg Enoxaparin Sodium (Enoxaparin 40 Mg/0.4 Ml Syringe) 40 mg SUBQ DAILY [facility] Last Admin: 10/09/22 09:39 Dose: 40 mg Lactated Ringer's (Lr) 1,000 mls @ 100 mls/hr IV .Q10H [facility] Last Infusion: 10/09/22 13:09 Dose: 0 mls/hr Ciprofloxacin (Cipro 400 Mg/200 Ml) 400 mg in 200 mls @ 200 mls/hr IV Q12H [facility] Last Infusion: 10/09/22 10:50 Dose: Infused Metronidazole (Flagyl 500 Mg/100 Ml) 500 mg in 100 mls @ 100 mls/hr IV Q8H [facility] Last Admin: 10/09/22 13:09 Dose: 100 mls/hr Ibuprofen (Ibuprofen 400 Mg Tablet) 400 mg PO Q8HR PRN PRN Reason: Pain or Fever > 38C (100.4F) Last Admin: 10/09/22 03:31 Dose: 400 mg Insulin Human Lispro (Insulin Lispro 300 Unit/3 Ml Pen) 2 - 10 unit SUBQ 0800,1200,1700,2100 [facility]; Protocol Last Admin: 10/09/22 11:46 Dose: 6 unit Lactobacillus Rhamnosus (Lactobacillus Rhamnosus Gg Capsule) 1 cap PO DAILY [facility] Last Admin: 10/09/22 09:38 Dose: 1 cap Lisinopril (Lisinopril 5 Mg Tablet) 2.5 mg PO QPM [facility] Multi-Ingredient Mouthwash/Gargle (Gi Cocktail 120 Ml Bottle) 30 ml PO Q4H PRN PRN Reason: Abdominal Pain Multi-Ingredient Ointment (Zinc Oxide 20% Oint 30 Gm Tube) 1 applic TOP PRN PRN PRN Reason: Skin Care Last Admin: 10/09/22 11:40 Dose: 1 applic Multivitamins (Multivitamin Tablet) 1 tab PO DAILYWM [facility] Last Admin: 10/09/22 07:59 Dose: 1 tab Pantoprazole Sodium (Pantoprazole 40 Mg Tablet) 40 mg PO QDAC [facility] Last Admin: 10/09/22 07:59 Dose: 40 mg Phenol/Menthol (Phenol Throat [place] 177 Ml) 2 sprays MM Q4HR PRN PRN Reason: Mouth Sore Pain Last Admin: 10/08/22 06:41 Dose: 2 sprays Sodium Chloride (Sodium Chloride Flush 0.9% 10 Ml Syringe) 10 ml IVP PRN PRN PRN Reason: NEEDED PER PROVIDER ORDERS Sodium Chloride (Sodium Chloride Flush 0.9% 10 Ml Syringe) 10 ml IVP 0100,0900,1700 [facility] Last Admin: 10/09/22 09:47 Dose: Not Given Sodium Chloride (Sodium Chloride 0.65% Nasal [place]) 2 sprays MEPERATRIZ Q4HR PRN PRN Reason: Nasal Congestion Tamsulosin HCl (Tamsulosin 0.4 Mg Capsule) 0.4 mg PO DAILY [facility] Last Admin: 10/09/22 09:38 Dose: 0.4 mg Throat Lozenges (Benzocaine/Menthol Lozenge) 1 lozenge MM Q2HR PRN PRN Reason: Mouth Sore Pain Last Admin: 10/08/22 21:28 Dose: 1 lozenge Zinc Sulfate (Zinc Sulfate 220 Mg Capsule) 220 mg PO DAILY [facility] Last Admin: 10/09/22 09:38 Dose: 220 mg Cetirizine [ZyrTEC] 10 mg PO BID 10/08/22 Lisinopril [Zestril] 2.5 mg PO DAILY 10/08/22 Metformin HCl [Metformin ER Gastric] 1,000 mg PO BID 10/08/22 Simvastatin [Zocor] 40 mg PO QPM 10/08/22 allopurinoL [Allopurinol] 300 mg PO DAILY 10/08/22 diphenhydrAMINE [Benadryl] 25 mg PO BID 10/08/22 Objective - Vital Signs/Intake & Output Reviewed Vital Signs: Yes Vital Signs: Vital Signs x48h Temp Pulse Pulse Resp BP Pulse Ox 10/09/22 07:53 36.4 C L 95 18 99/61 96 10/09/22 04:50 37.0 C 111 H 20 99/57 L 94 Intake & Output: Intake & Output 10/06/22 10/07/22 10/08/22 10/09/22 23:59 23:59 23:59 23:59 Intake Total 1300 4555.333 2373.333 Output Total 950 150 Balance 1300 3605.333 2223.333 - Objective General Appearance: positive: No acute distress, Alert Eyes Bilateral: positive: Normal inspection, PERRL ENT: positive: ENT inspection nml, Pharynx nml, No signs of dehydration Neck: positive: Nml inspection, Thyroid nml, No JVD Respiratory: positive: Chest non-tender, No respiratory distress, Breath sounds nml Cardiovascular: positive: Regular rate & rhythm, No murmur, No gallop, Other (Atrial fibrillation found on telemetry. No signs or symptoms of exaceration during visit.). negative: Tachycardia, Bradycardia Abdomen: positive: Non-tender, No distention Back: positive: Nml inspection Skin: positive: Color nml, No rash, Warm, Dry. negative: Diaphoresis Extremities: positive: Non-tender, Full ROM, Nml appearance Neurologic/Psychiatric: positive: Oriented x3, Sensation nml, Mood/affect nml - Lab Results Fish Bones: 10/08/22 01:00 10/09/22 04:44 Other Labs: Lab Results x24hrs 10/09/22 Range/Units 04:44 Sodium 137 (135-145) mmol/L Potassium 3.4 L (3.5-5.0) mmol/L Chloride 103 (101-111) mmol/L Carbon Dioxide 23 (21-32) mmol/L Anion Gap 11.0 (6-13) BUN 23 H (6-20) mg/dL Creatinine 1.1 (0.6-1.2) mg/dL Estimated GFR (MDRD) 65 L (>89) Glucose 175 H (70-100) mg/dL Calcium 8.4 L (8.5-10.3) mg/dL Magnesium 1.8 (1.7-2.8) mg/dL ABX Reporting Has patient been on IV antibiotics over the past 48 hours?: Yes Assessment/Plan - Problem List (1) Sepsis Impression: Patient met sepsis criteria on admission with elevated white cell count, hypotension, hepatitis, and tachycardia. Patient is doing better today and denies fever, shortness of breath, chest pain and weakness. Patients WBCs continue to decline and were 14.3 on 10/08. Patient does not appear in acute distress and has a pleasant affect. Plan: Continue patient on ciprofloxacin until completed course. Started 10/08 Continue patient on metronidazole until completed course. Started 10/08 Order CBC and CMP to monitor disease process. Continue LR IV fluids Continue to monitor patients vital signs every 8 hours. Qualifiers: Sepsis type: sepsis due to unspecified organism Sepsis acute organ dysfun ction status: without acute organ dysfunction Qualified Code(s): A41.9 - Sepsis, unspecified organism (2) Generalized weakness Impression: Patient was sitting on recliner during visit. Patient nurse informed me that mi nimal assistance was require for patient to get to recliner, no gait belt was utilized. Patient reports feeling better and some strength returned. Plan Await hepatitis A panel results Continue of IV fluids. LR Continue to monitor patient every 8 hours (3) Pre-diabetes Impression: Patient's HbA1c is 6.5% suggesting pre-diabetes. Patient take metformin at home for pre-diabetes, however due to its side effect profile, patient metformin discontinued and sliding scale insulin initiated during visit. Patients glucose was 175 in the morning of visit and nurse administered 6 units of Lispro. Patient denies weakness and shows no signs of hypoglycemia. Plan: Continue sliding scale insulin Continue to monitor patients glucose levels before every meal. (4) Atrial fibrillation with rapid ventricular response Impression: Telemed was contacted at 0227 on 10/09/2022 and due to patient waking up diaphoretic. Atrial fibrillation was found on telemetry and patients pulse was in the "120s" per . Diltiazem was order and patients heart rate was 80bpm during visit. Patient was warm, dry and in no acute distress during visit. Plan Continue to monitor patients vitals every 8 hours Strongly consider anticoagulation therapy. Continue diltiazem for rate control. Continue patient on telemetry. (5) Pharyngitis Impression: Patient does not report a sore throat during visit. Patient reports mild cough with clear production. Patients culture is awaiting results. Plan: Continue to monitor patients vitals every 8 hours.
[2022-10-09 14:11] LABS: ALBUMIN 2.4 g/dL (3.2-5.5); BILIRUBIN,DIRECT 0.2 mg/dL (0.1-0.5); BILIRUBIN,TOTAL 0.7 mg/dL (0.2-1.0); TOTAL PROTEIN 5.3 g/dL (6.7-8.2)
[2022-10-09] MEDS: BENZOCAINE/MENTHOL LOZENGE MM PRN (15:33)
--- NOTE | 2022-10-09 16:54 | XRAY Report ---
PROCEDURE: Chest 1 View X-Ray INDICATIONS: sudden fatigue, pain in R shoulder >neck/jaw TECHNIQUE: One view of the chest was acquired. COMPARISON: 10/07/2022 FINDINGS: Surgical changes and devices: None. Lungs and pleura: No pleural effusions or pneumothorax. Lungs are clear. Mediastinum: Mediastinal contours appear normal. Heart size is normal. Bones and chest wall: No suspicious bony lesions. Overlying soft tissues appear unremarkable. IMPRESSION: No acute process. Reviewed by: Nahid Haskins MD on 10/09/2022 4:53 PM PST Approved by: Nahid Haskins MD on 10/09/2022 4:53 PM PST Station ID: [id number]
[2022-10-09] MEDS: APIXABAN 5 MG TABLET PO SCH (20:35)
[2022-10-09] MEDS: lisinopriL 5 MG TABLET PO SCH (20:35)
[2022-10-09] MEDS: ATORVASTATIN 10 MG TABLET PO SCH (20:35)
[2022-10-09] MEDS: allopurinoL 100 MG TABLET PO SCH (20:35)
[2022-10-10] MEDS: LACTATED RINGERS 1,000 ML IV SCH (00:37)
[2022-10-10] MEDS: SODIUM CHLORIDE FLUSH 0.9% 10 ML SYRINGE IVP SCH ×3 (02:18→17:10)
[2022-10-10 03:09] LABS: HBsAG SCREEN Negative (Negative); HCV AB Non Reactive (Non Reactive); HEPATITIS B CORE IGM AB Negative (Negative)
[2022-10-10] MEDS: metroNIDAZOLE 500 MG/100 ML 500 MG/100 ML BAG IV SCH ×2 (05:15→14:15)
[2022-10-10 05:29] LABS: ALBUMIN 2.3 g/dL (3.2-5.5); ALBUMIN/GLOBULIN RATIO 0.7 (1.0-2.2); BILIRUBIN,TOTAL 0.5 mg/dL (0.2-1.0); CALCIUM 8.2 mg/dL (8.5-10.3); CREATININE 0.9 mg/dL (0.6-1.2); POTASSIUM 3.5 mmol/L (3.5-5.0); TOTAL PROTEIN 5.4 g/dL (6.7-8.2)
[2022-10-10] MEDS: PANTOPRAZOLE 40 MG TABLET PO SCH (06:27)
[2022-10-10] MEDS: diltiaZEM CD 180 MG CAPSULE PO SCH (08:16)
[2022-10-10] MEDS: MULTIVITAMIN TABLET PO SCH (08:16)
[2022-10-10] MEDS: TAMSULOSIN 0.4 MG CAPSULE PO SCH (08:16)
[2022-10-10] MEDS: CHOLECALCIFEROL 400 UNIT TABLET PO SCH (08:16)
[2022-10-10] MEDS: LACTOBACILLUS RHAMNOSUS GG CAPSULE PO SCH (08:16)
[2022-10-10] MEDS: APIXABAN 5 MG TABLET PO SCH ×2 (08:16→20:38)
[2022-10-10] MEDS: ZINC SULFATE 220 MG CAPSULE PO SCH (08:16)
[2022-10-10] MEDS: CIPROFLOXACIN 400 MG/200 ML 400 MG/200 ML BAG IV SCH (08:17)
[2022-10-10] MEDS: ASCORBIC ACID 500 MG TABLET PO SCH (08:17)
[2022-10-10] MEDS: INSULIN LISPRO 300 UNIT/3 ML PEN SUBQ SCH ×4 (08:18→20:46)
--- NOTE | 2022-10-10 11:56 | PROVIDER PROGRESS NOTE ---
Assessment/Plan - Problem List (1) Sepsis Qualifiers: Sepsis type: sepsis due to unspecified organism Sepsis acute organ dysfunction status: without acute organ dysfunction Qualified Code(s): A41.9 - Sepsis, unspecified organism Assessment/Plan: Patient met sepsis criteria on admission with elevated white cell count, hy potension, hepatitis labs, and tachycardia. Patient is doing somewhat better. His last fever was at 1600 yesterday 10/09. There is no shortness of breath or chest pain. Patients WBC continues to decline on empiric Cipro, Flagyl. The source of his sepsis is still not known: Hepatitis A results are back today and are neg, but LFTs are still up and down. All cx are neg to date. At adm, the most likely source was urine, given his urinary frequency, but U/A was unremarkable. Given the elveated LFTs, a biliary source of infection such as choledocholithiasis or cholecystitis was considered and that is why Cipro and Flagyl were started, given his PCN allergy. Malaria could also cause this constellation of symptoms and lab findings, but according to CDC website, malaria is pretty uncommon in that area of [place] ([facility]) but not completely unheard of. Plan: Will change iv antibx to oral Cipro and oral Flagyl today, and plan to complete an empiric course of treatment. Follow daily CBC and assess if WBC increases tomorrow on oral meds. Await final blood culture results Await final thick and thin smear results for Malaria (this is a send-out lab and result still pending, I called lab and checked, they did recev it). Continue LR IV fluids, will decrease rate then stop, since he is eating Consider DCh when no fever for 24 hours or more I discussed his entire case and plan with the patient and the was at bedside today Qualifiers: Sepsis type: sepsis due to unspecified organism Sepsis acute organ dysfunction status: without acute organ dysfunction Qualified Code(s): A41.9 - Sepsis, unspecified organism (2) Atrial fibrillation with rapid ventricular response Impression: Patient presented with a cough and new onset A-fib. TSH was normal. He was not SOB and not hypoxic. Telemed was contacted at 0227 on 10/09/2022, due to patient waking up diaphoret ic. Atrial fibrillation was in the "120s". Diltiazem iv push was ordered. Since that time the patient has converted from A-fib to NSR. Echo was done today and this shows normal LV size and EF but there is RV enlargement and dilated IVC Plan Continue diltiazem for rate control. Continue patient on telemetry. We will consider a CTA chest to evaluate for PE, which can cause Afib, and the patient did have recent air travel ([place], [place], then home), giveing him DVT and PE risk. Howev er, he was not SOB and had a cough but no tachypnea Would order anticoagulation therapy if he has a PE. Also, his [id number] score = 2-3 (age >75 and Hx of pre-M), therefore he is on the cusp of qualifying for anticoag for stroke prophylaxis. (3) Cor Pulmonale Impression: A dilated RV and dilated IVC and pulm hypertension (PA pressure 49 mmHg) were seen on the Echo done today. Today I queried the patient, and at bedside whether he has any pulmonary diseases by history. The reported that he used to have sleep apnea but then he lost 50 pounds many years ago and has no further witnessed sleep apnea. Otherwise there is no COPD, but he used to smoke but quit 35 years ago Plan: Consider CTA of chest (4) Pericardial effusion Impression: A circumferential but small pericardial effusion was seen on Echo done today Etiologies include inflammatory (as with lupus or RA), malignant, hypothyroid (but his TSH was normal), and infectious This pericardial effusion could be the cause of his cough and "pharyngitis". Plan: We will start scheduled NSAIDs given with meals, for several days (5) Elevated LFTs Impression: Given the finding of Cor pulmonale and dilated IVC, will also consider passive liver congestion as the cause of elevated LFTs. Doubt [place], with no abd pain. Plan: Follow LFTs daily. CTA chest was considered with IVC imaging. (6) Pre-diabetes Impression: Patient's HbA1c is 6.5% suggesting pre-diabetes. Patient take metformin at home for pre-diabetes, however due to its side effect profile, metformin has been on hold and sliding scale insulin initiated. Patient denies weakness and shows no signs of hypoglycemia. Plan: Continue sliding scale insulin Continue to monitor patients glucose levels ac & hs (7) Generalized weakness Impression: Patient was able to participate with PT today, he needed a walker. Patient reports feeling better and some strength returned. Plan Continue IV fluids. Continue PT (8) Pharyngitis Impression: Patient reported mild cough with clear sputum production. Sputum cx are back and unremarkable, only oral messi grew. Plan: Symptomatic care. - Current Meds Current Meds: Current Medications Generic Name Dose Route Start Last Admin Trade Name Caliq PRN Reason Stop Dose Admin Allopurinol 300 mg 10/09/22 21:00 10/09/22 20:35 Allopurinol 100 Mg Tablet PO 300 mg QPM RICARDO Administration Apixaban 5 mg 10/09/22 21:00 10/10/22 08:16 Apixaban 5 Mg Tablet PO 5 mg BID RICARDO Administration Ascorbic Acid 500 mg 10/08/22 09:00 10/10/22 08:17 Ascorbic Acid 500 Mg Tablet PO 500 mg DAILY RICARDO Administration Atorvastatin Calcium 20 mg 10/09/22 21:00 10/09/22 20:35 Atorvastatin 10 Mg Tablet PO 20 mg QPM RICARDO Administration Cholecalciferol 400 unit 10/08/22 09:00 10/10/22 08:16 Cholecalciferol 400 Unit Tablet PO 400 unit DAILY RICARDO Administration Diltiazem HCl 180 mg 10/09/22 10:00 10/10/22 08:16 Diltiazem Cd 180 Mg Capsule PO 180 mg DAILY RICARDO Administration Lactated Ringer's 1,000 mls @ 100 mls/hr 10/08/22 01:00 10/10/22 06:26 Lr IV 100 mls/hr .Q10H RICARDO Infusion Ciprofloxacin 400 mg in 200 mls @ 200 mls/hr 10/08/22 09:00 10/10/22 09:26 Cipro 400 Mg/200 Ml IV 10/10/22 13:00 Infused Q12H RICARDO Infusion Metronidazole 500 mg in 100 mls @ 100 mls/hr 10/08/22 05:00 10/10/22 06:26 Flagyl 500 Mg/100 Ml IV 10/10/22 13:00 Infused Q8H RICARDO Infusion Ibuprofen 400 mg 10/08/22 00:58 10/09/22 23:43 Ibuprofen 400 Mg Tablet PO 400 mg Q8HR PRN Administration Pain or Fever > 38C (100.4F) Insulin Human Lispro 2 - 10 unit 10/09/22 12:00 10/10/22 08:18 Insulin Lispro 300 Unit/3 Ml Pen SUBQ 2 unit 0800,1200,1700,2100 RICARDO Administration Protocol Lactobacillus Rhamnosus 1 cap 10/08/22 09:00 10/10/22 08:16 Lactobacillus Rhamnosus Gg Capsule PO 1 cap DAILY RICARDO Administration Lisinopril 2.5 mg 10/09/22 21:00 10/09/22 20:35 Lisinopril 5 Mg Tablet PO 2.5 mg QPM RICARDO Administration Multi-Ingredient Ointment 1 applic 10/09/22 10:56 10/09/22 11:40 Zinc Oxide 20% Oint 30 Gm Tube TOP 1 applic PRN PRN Administration Skin Care Multivitamins 1 tab 10/08/22 08:00 10/10/22 08:16 Multivitamin Tablet PO 1 tab DAILYWM RICARDO Administration Pantoprazole Sodium 40 mg 10/08/22 07:00 10/10/22 06:27 Pantoprazole 40 Mg Tablet PO 40 mg QDAC RICARDO Administration Phenol/Menthol 2 sprays 10/08/22 00:54 10/08/22 06:41 Phenol Throat [place] 177 Ml MM 2 sprays Q4HR PRN Administration Mouth Sore Pain Sodium Chloride 10 ml 10/08/22 00:43 10/09/22 14:57 Sodium Chloride Flush 0.9% 10 Ml Syringe IVP 10 ml PRN PRN Administration NEEDED PER PROVIDER ORDERS Sodium Chloride 10 ml 10/08/22 01:00 10/10/22 09:24 Sodium Chloride Flush 0.9% 10 Ml Syringe IVP Not Given 0100,0900,1700 [facility] Tamsulosin HCl 0.4 mg 10/08/22 09:00 10/10/22 08:16 Tamsulosin 0.4 Mg Capsule PO 0.4 mg DAILY RICARDO Administration Throat Lozenges 1 lozenge 10/08/22 00:53 10/09/22 15:33 Benzocaine/Menthol Lozenge MM 1 lozenge Q2HR PRN Administration Mouth Sore Pain Zinc Sulfate 220 mg 10/08/22 09:00 10/10/22 08:16 Zinc Sulfate 220 Mg Capsule PO 220 mg DAILY RICARDO Administration - Lab Result Fish Bone Diagrams: 10/08/22 01:00 10/10/22 04:36 - Additional Planning My Orders: My Active Orders 10/10/22 17:00 metroNIDAZOLE [Flagyl] 500 mg PO TIDWM 10/10/22 21:00 Ciprofloxacin [Cipro] 250 mg PO BID 10/11/22 05:00 BMP - BASIC METABOLIC PANEL [CHEM] DAILYLAB CBC - COMP BLD CT W/AUTO DIFF [HEME] DAILYLAB Objective Vital Signs: Vital Signs - 24 hr 10/09/22 10/09/22 10/09/22 13:00 14:15 14:56 Temperature 37.2 C 37.3 C Heart Rate [ 85 Brachial] Heart Rate [ Monitoring electrodes] Heart Rate [ 86 Sitting] Heart Rate [ 78 Supine] Respiratory 18 Rate Blood Pressure [Left Brachial artery] Blood Pressure 105/60 [Right Brachial artery] Blood Pressure 132/62 H [Sitting] Blood Pressure 118/53 L [Supine] O2 Saturation 97 10/09/22 10/09/22 10/09/22 15:30 15:35 15:37 Temperature 38 C H Heart Rate [ Brachial] Heart Rate [ 85 82 Monitoring electrodes] Heart Rate [ Sitting] Heart Rate [ Supine] Respiratory 20 Rate Blood Pressure 121/56 L [Left Brachial artery] Blood Pressure [Right Brachial artery] Blood Pressure [Sitting] Blood Pressure [Supine] O2 Saturation 94 10/09/22 10/09/22 10/09/22 16:16 16:48 20:23 Temperature 38.5 C H 37.9 C 37.2 C Heart Rate [ 84 Brachial] Heart Rate [ Monitoring electrodes] Heart Rate [ Sitting] Heart Rate [ Supine] Respiratory 24 Rate Blood Pressure 113/55 L [Left Brachial artery] Blood Pressure [Right Brachial artery] Blood Pressure [Sitting] Blood Pressure [Supine] O2 Saturation 94 10/09/22 10/10/22 10/10/22 23:53 04:34 07:49 Temperature 37.0 C 36.7 C 36.8 C Heart Rate [ 87 79 83 Brachial] Heart Rate [ Monitoring electrodes] Heart Rate [ Sitting] Heart Rate [ Supine] Respiratory 20 18 16 Rate Blood Pressure 100/51 L [Left Brachial artery] Blood Pressure 132/66 H 113/59 L [Right Brachial artery] Blood Pressure [Sitting] Blood Pressure [Supine] O2 Saturation 94 92 92 Oxygen O2 Source Room air I&O (Last 24 Hrs): Intake and Output Totals x24h 10/08/22 10/09/22 10/10/22 23:59 23:59 23:59 Intake Total 4555.333 4707.333 1075.000 Output Total 950 750 950 Balance 3605.333 3957.333 125.000 - Results Results: Laboratory Results WBC 14.3 x10^3/uL (4.8-10.8) H 10/08/22 01:00 RBC 3.85 10^6/uL (4.70-6.10) L 10/08/22 01:00 Hgb 11.8 g/dL (14.0-18.0) L 10/08/22 01:00 Hct 35.5 % (42.0-52.0) L 10/08/22 01:00 MCV 92.2 fL (80.0-94.0) 10/08/22 01:00 MCH 30.6 pg (27.0-31.0) 10/08/22 01:00 MCHC 33.2 g/dL (32.0-36.0) 10/08/22 01:00 RDW 13.2 % (12.0-15.0) 10/08/22 01:00 Plt Count 200 10^3/uL (130-450) 10/08/22 01:00 MPV 10.5 fL (7.4-11.4) 10/08/22 01:00 Neut # (Auto) 12.9 10^3/uL (1.5-6.6) H 10/08/22 01:00 Lymph # (Auto) 0.6 10^3/uL (1.5-3.5) L 10/08/22 01:00 [place] # (Auto) 0.4 10^3/uL (0.0-1.0) 10/08/22 01:00 Eos # (Auto) 0.3 10^3/uL (0.0-0.7) 10/08/22 01:00 Baso # (Auto) 0.0 10^3/uL (0.0-0.1) 10/08/22 01:00 Absolute Nucleated RBC 0.00 x10^3/uL 10/08/22 01:00 Nucleated RBC % 0.0 /100WBC 10/08/22 01:00 RBC Morph Micro Appear NORMAL APPEARANCE (NORMAL) 10/07/22 18:36 Sodium 137 mmol/L (135-145) 10/10/22 04:36 Potassium 3.5 mmol/L (3.5-5.0) 10/10/22 04:36 Chloride 105 mmol/L (101-111) 10/10/22 04:36 Carbon Dioxide 23 mmol/L (21-32) 10/10/22 04:36 Anion Gap 9.0 (6-13) 10/10/22 04:36 BUN 22 mg/dL (6-20) H 10/10/22 04:36 Creatinine 0.9 mg/dL (0.6-1.2) 10/10/22 04:36 Estimated GFR (MDRD) 81 (>89) L 10/10/22 04:36 Glucose 177 mg/dL (70-100) H 10/10/22 04:36 Estimat Average Glucose 140 mg/dL (70-100) H 10/07/22 18:36 Hemoglobin A1c % 6.5 % (4.27-6.07) H 10/07/22 18:36 Lactic Acid 1.7 mmol/L (0.5-2.2) 10/08/22 00:23 Calcium 8.2 mg/dL (8.5-10.3) L 10/10/22 04:36 Magnesium 1.8 mg/dL (1.7-2.8) 10/09/22 04:44 Total Bilirubin 0.5 mg/dL (0.2-1.0) 10/10/22 04:36 Direct Bilirubin 0.2 mg/dL (0.1-0.5) 10/09/22 04:44 AST 73 IU/L (10-42) H 10/10/22 04:36 ALT 98 IU/L (10-60) H 10/10/22 04:36 Alkaline Phosphatase 153 IU/L (42-121) H 10/10/22 04:36 Total Creatine Kinase 30 IU/L (22-269) 10/07/22 18:41 Troponin I High Sens 12.1 ng/L (2.3-19.7) 10/09/22 16:00 Total Protein 5.4 g/dL (6.7-8.2) L 10/10/22 04:36 Albumin 2.3 g/dL (3.2-5.5) L 10/10/22 04:36 Globulin 3.1 g/dL (2.1-4.2) 10/10/22 04:36 Albumin/Globulin Ratio 0.7 (1.0-2.2) L 10/10/22 04:36 Triglycerides 99 mg/dL (-149) 10/07/22 18:36 Cholesterol 132 mg/dL (-199) 10/07/22 18:36 LDL Cholesterol, Calc 59 mg/dL (-129) 10/07/22 18:36 VLDL Cholesterol 20 mg/dL 10/07/22 18:36 HDL Cholesterol 53 mg/dL (60-) L 10/07/22 18:36 LDL/HDL Ratio 1.1 (<3.6) 10/07/22 18:36 Cholesterol/HDL Ratio 2.5 (<5.0) 10/07/22 18:36 TSH 4.24 uIU/mL (0.34-5.60) 10/07/22 18:36 Urine Color DARK YELLOW 10/07/22 19:35 Urine Clarity CLEAR (CLEAR) 10/07/22 19:35 Urine pH 6.0 PH (5.0-7.5) 10/07/22 19:35 Ur Specific [place] 1.020 (1.002-1.030) 10/07/22 19:35 Urine Protein 30 mg/dL (NEGATIVE) H 10/07/22 19:35 Urine Glucose (UA) NEGATIVE mg/dL (NEGATIVE) 10/07/22 19:35 Urine Ketones NEGATIVE mg/dL (NEGATIVE) 10/07/22 19:35 Urine Occult Blood NEGATIVE (NEGATIVE) 10/07/22 19:35 Urine Nitrite NEGATIVE (NEGATIVE) 10/07/22 19:35 Urine Bilirubin NEGATIVE (NEGATIVE) 10/07/22 19:35 Urine Urobilinogen 0.2 (NORMAL) E.U./dL (NORMAL) 10/07/22 19:35 Ur Leukocyte Esterase NEGATIVE (NEGATIVE) 10/07/22 19:35 Urine RBC None Seen /HPF (0-5) 10/07/22 19:35 Urine WBC 0-3 /HPF (0-3) 10/07/22 19:35 Ur Squamous Epith Cells RARE Squamous (<= Few) 10/07/22 19:35 Urine Bacteria None Seen /HPF (None Seen) 10/07/22 19:35 Urine Casts 0-2 Hyaline Casts /LPF 10/07/22 19:35 Urine Culture Comments NOT INDICATED 10/07/22 19:35 Nasal Adenovirus (PCR) NOT DETECTED 02 18:50 Nasal B. parapertussis DNA (PCR) NOT DETECTED 10/07/22 18:50 Nasal Coronavir 229E PCR NOT DETECTED 02 18:50 Nasal Coronavir HKU1 PCR NOT DETECTED 10/07/22 18:50 Nasal Coronavir NL63 PCR NOT DETECTED 10/07/22 18:50 Nasal Coronavir OC43 PCR NOT DETECTED 10/07/22 18:50 Nasal Enterovir/Rhinovir PCR NOT DETECTED 02 18:50 Nasal Influenza B PCR NOT DETECTED 10/07/22 18:50 Nasal Influenza A PCR NOT DETECTED 10/07/22 18:50 Nasal Parainfluen 1 PCR NOT DETECTED 10/07/22 18:50 Nasal Parainfluen 2 PCR NOT DETECTED 10/07/22 18:50 Nasal Parainfluen 3 PCR NOT DETECTED 10/07/22 18:50 Nasal Parainfluen 4 PCR NOT DETECTED 10/07/22 18:50 Nasal RSV (PCR) NOT DETECTED 10/07/22 18:50 Nasal B.pertussis DNA PCR NOT DETECTED 10/07/22 18:50 Nasal C.pneumoniae (PCR) NOT DETECTED 10/07/22 18:50 Lance Human Metapneumo PCR NOT DETECTED 10/07/22 18:50 Nasal M.pneumoniae (PCR) NOT DETECTED 10/07/22 18:50 Nasal SARS-CoV-2 (PCR) NOT DETECTED 10/07/22 18:50 Hepatitis A IgM Ab Negative (Negative) 10/07/22 18:41 Hep Bs Antigen Negative (Negative) 10/07/22 18:41 Hep B Core IgM Ab Negative (Negative) 10/07/22 18:41 Hepatitis C Antibody Non Reactive (Non Reactive) 10/07/22 18:41 Hepatitis C Interp Comment (.) 10/07/22 18:41 Group A Strep Rapid Negative (Negative) 10/07/22 23:00
[2022-10-10] MEDS: IBUPROFEN 400 MG TABLET PO PRN ×2 (12:26→20:38)
[2022-10-10] MEDS: metroNIDAZOLE 250 MG TABLET PO SCH (17:15)
[2022-10-10] MEDS: allopurinoL 100 MG TABLET PO SCH (20:37)
[2022-10-10] MEDS: lisinopriL 5 MG TABLET PO SCH (20:38)
[2022-10-10] MEDS: ATORVASTATIN 10 MG TABLET PO SCH (20:39)
[2022-10-10] MEDS ORDERED: CIPROFLOXACIN 250 MG TABLET PO SCH (21:00)
[2022-10-11 05:30] LABS: BASOPHILS % (AUTO) 0.3 %; EOSINOPHILS # (AUTO) 0.5 10^3/uL (0.0-0.7); EOSINOPHILS % (AUTO) 4.7 %; HCT - HEMATOCRIT 35.5 % (42.0-52.0); HGB - HEMOGLOBIN 11.5 g/dL (14.0-18.0); LYMPHOCYTES # (AUTO) 0.9 10^3/uL (1.5-3.5); LYMPHOCYTES % (AUTO) 8.3 %; MEAN CORPUSCULAR HEMOGLOBIN 29.9 pg (27.0-31.0); MEAN CORPUSCULAR HGB CONC 32.4 g/dL (32.0-36.0); MEAN CORPUSCULAR VOLUME 92.4 fL (80.0-94.0); MEAN PLATELET VOLUME 10.2 fL (7.4-11.4); MONOCYTES # (AUTO) 0.8 10^3/uL (0.0-1.0); NEUTROPHILS # (AUTO) 8.6 10^3/uL (1.5-6.6); NEUTROPHILS % (AUTO) 78.1 %; PLT - PLATELET COUNT 316 10^3/uL (130-450); RED BLOOD COUNT 3.84 10^6/uL (4.70-6.10); RED CELL DISTRIBUTION WIDTH 13.1 % (12.0-15.0)
[2022-10-11 05:43] LABS: CALCIUM 8.5 mg/dL (8.5-10.3); CREATININE 0.9 mg/dL (0.6-1.2); POTASSIUM 3.6 mmol/L (3.5-5.0)
[2022-10-11] MEDS: SODIUM CHLORIDE FLUSH 0.9% 10 ML SYRINGE IVP SCH ×2 (05:46→09:14)
[2022-10-11] MEDS: PANTOPRAZOLE 40 MG TABLET PO SCH (06:56)
[2022-10-11] MEDS: MULTIVITAMIN TABLET PO SCH (08:11)
[2022-10-11] MEDS: metroNIDAZOLE 250 MG TABLET PO SCH ×2 (08:11→11:58)
[2022-10-11] MEDS: INSULIN LISPRO 300 UNIT/3 ML PEN SUBQ SCH ×2 (08:11→11:59)
[2022-10-11] MEDS ORDERED: iohexoL-300 100 ML VIAL ONE (08:48)
[2022-10-11 08:55] LABS: ALBUMIN 2.3 g/dL (3.2-5.5); BILIRUBIN,DIRECT 0.1 mg/dL (0.1-0.5); BILIRUBIN,TOTAL 0.5 mg/dL (0.2-1.0); TOTAL PROTEIN 5.4 g/dL (6.7-8.2)
[2022-10-11] MEDS ORDERED: CIPROFLOXACIN 250 MG TABLET PO SCH (09:03)
[2022-10-11] MEDS: APIXABAN 5 MG TABLET PO SCH (09:12)
[2022-10-11] MEDS: diltiaZEM CD 180 MG CAPSULE PO SCH (09:12)
[2022-10-11] MEDS: TAMSULOSIN 0.4 MG CAPSULE PO SCH (09:12)
[2022-10-11] MEDS: LACTOBACILLUS RHAMNOSUS GG CAPSULE PO SCH (09:13)
[2022-10-11] MEDS: ZINC SULFATE 220 MG CAPSULE PO SCH (09:13)
[2022-10-11] MEDS: ASCORBIC ACID 500 MG TABLET PO SCH (09:14)
[2022-10-11] MEDS: CHOLECALCIFEROL 400 UNIT TABLET PO SCH (09:14)
[2022-10-11] MEDS: IBUPROFEN 400 MG TABLET PO PRN (09:41)
--- NOTE | 2022-10-11 12:16 | CT Report ---
PROCEDURE: ANGIO CHEST W/WO INDICATIONS: PE eval CONTRAST: 100 ML OMNI 300 TECHNIQUE: After the administration of intravenous contrast, 2 mm axial images were acquired from the pulmonary apices to the posterior costophrenic angles during the arterial phase. In addition, 1 mm lung kernel and 5 mm soft tissue kernel reconstructions were performed. 3-dimensional coronal oblique maximum int ensity projection (MIP) reformats, 8 mm axial MIP, and 5 mm coronal and sagittal MPR reformats were t hen performed through the thorax. For radiation dose reduction, the following was used: automated exp osure control, adjustment of mA and/or kV according to patient size. COMPARISON: None FINDINGS: Image quality: Adequate. There is respiratory motion present.. Pulmonary arteries: Pulmonary arteries are normal in size, and demonstrate no intraluminal filling d efects to suggest central pulmonary embolism. Lungs and pleura: Small bilateral subpulmonic effusions and dependently layering pleural effusion po steriorly. Low lung volumes. Mild diffuse interstitial thickening. Gravitational changes along the ma pranav fissures deepened prominently in the lower lobes posteriorly. Eventration of the right hemidiaphr agm decreases right lung volume. Atelectatic change at the posterior costophrenic sulci. Diffuse narr owing of peripheral airways may be secondary to the phase of respiration versus bronchial wall thicke martha. Central and peripheral airways are patent. Mediastinum: Heart size is at the upper limits of normal. There is a izqpw-ll-vjpqwtot sized pericard ial effusion. Moderate coronary artery calcification. No mediastinal or hilar adenopathy. Thoracic a ivan is normal in caliber and enhancement. Esophagus is normal in caliber, without hiatal hernia. Bones and chest wall: No suspicious bony lesions. Ribs and thoracic spine appear intact throughout. No axillary or supraclavicular adenopathy. There is a exophytic nodule, isodense to the remainder of thyroid arising from the deep portion of the right lobe. There is a central coarse calcification. Abdomen: Reported separately. IMPRESSION: 1. No pulmonary embolus. 2. Bilateral pleural effusions, interstitial thickening and subpulmonic effusion may indicate CHF, vo lume overload, or interstitial pneumonitis. 3. There may be infectious bronchitis or bronchial wall thickening due to congestion. 4. Bznjr-df-zdrzyqac pericardial effusion. 5. Coronary artery calcification. 6. Exophytic thyroid nodule arising from the right lobe. Consider thyroid ultrasound as an outpatient for further evaluation. Reviewed by: Leesa William MD on 10/11/2022 12:15 PM PST Approved by: Leesa William MD on 10/11/2022 12:15 PM PST Station ID: [id number]
--- NOTE | 2022-10-11 12:25 | CT Report ---
PROCEDURE: ABDOMEN W INDICATIONS: Late phase venous, evalLiver ?[place] CONTRAST: 100 ML OMNI 300 TECHNIQUE: After the administration of oral and intravenous contrast, 5 mm thick sections acquired from the diap hragms to the iliac crests. 5 mm thick coronal and sagittal reformats were acquired. For radiation dose reduction, the following was used: automated exposure control, adjustment of mA and/or kV accor ding to patient size. COMPARISON: 10/08/2022 FINDINGS: Image quality: Excellent. Lung bases: Bilateral pleural effusions and bibasilar consolidations suggesting atelectasis. Small to moderate pericardial effusion. Solid organs: The liver is normal in size and attenuation. No mass. Normal enhancement. No visible v ascular abnormality on this portal venous phase. The gallbladder is partially decompressed. No visibl e calculi. No intra or extrahepatic biliary dilatation. Normal pancreas, spleen, and adrenal glands. Bilateral nonobstructing intrarenal calculi measuring 4 mm on the right and 3 mm on the left. 2.2 cm left renal cyst. No hydronephrosis. Peritoneum and bowel: The stomach is decompressed. Visible small bowel loops are normal. Sigmoid div erticulosis is partially seen. No free fluid or free intraperitoneal air. Contrast enhanced bowel loo ps appear normal in caliber. No free fluid or air. Nodes and vessels: Retrohepatic inferior vena cava images decompressed. Distal IVC is nonopacified. Suprahepatic IVC is opacified and normal caliber. No visible filling defects. Mild calcific atheroscl erosis of the aorta which is normal caliber. No visible retroperitoneal or mesenteric adenopathy. Bones: No suspicious bony lesions. No vertebral body compression fractures. Multilevel thoracic an d lumbar vertebral body endplate spurring, disc height loss and facet arthropathy. Miscellaneous: Tiny fat-containing umbilical hernia. IMPRESSION: 1. Normal CT appearance of the liver. No significant change compared to prior. 2. Development of bilateral pleural effusions and small bibasilar pulmonary parenchymal consolidation s. 3. Nonobstructing bilateral intrarenal calculi. 4. Mildly decompressed retrohepatic IVC suggesting low volume state. Reviewed by: Leesa William MD on 10/11/2022 12:23 PM PST Approved by: Leesa William MD on 10/11/2022 12:23 PM PST Station ID: [id number]
--- NOTE | 2022-10-11 13:21 | Discharge Plan ---
Discharge Plan Problem Reviewed?: Yes Disposition: Home, Self Care Condition: Stable Prescriptions: diltiaZEM CD [Cardizem Cd] 120 mg PO DAILY #30 cap Ciprofloxacin [Cipro] 250 mg PO BID #14 tab Aspirin EC [Ecotrin] 81 mg PO DAILY #30 tablet metroNIDAZOLE [Flagyl] 500 mg PO TID #21 tab Diet: Low Sodium Activity Restrictions: Activity as Tolerated Shower Restrictions: No Driving Restrictions: No Assistance Devices: Walker Weight Bearing: Full Weight Instruction Topics: Interstitial Lung Disease Infec Health Concerns: You were admitted to the hospital because we found you to be septic but we never identified a bacteria or virus and we estimated what antibiotics to use. You were also in new onset of Atrial fibrillation. Your blood test showed you have abnormal liver function tests and an Echo shows you have right-sided heart enlargement and fluid around the heart. A CT scan of the chest showed you have interstitial pneumonitis. You are being discharged home to finish a course of antibiotics using oral Ciprofloxacin and Flagyl. Take a daily probiotic or daily yogurt while you are on these antibiotics or if you develop diarrhea. Please see your primary care provider as an outpatient for a hospital follow-up visit, and to continue to evaluate these various abnormalities. You need a referral to Cardiology for evaluating the A-fib, and the findings of atherosclerotic plaque seen in your coronary arteries (on the CT scan of the chest); this means you need a stress test. Because of the Atrial fib and the coronary plaque, you should start taking 1 baby aspirin daily. You are on a new prescription called Cardinayely PORTER to take for the Atrial fib. You may resume all your other usual pre-Hospital medications and management. All your new prescriptions were electronically sent to the [facility] in [place]. For muscle strengthening, you qualify for outpatient physical therapy, and you would need to get a referral from your doctor for this. Plan of Treatment: As above. An appointment has been arranged for you at the [facility], for you to see Dr. Brannon Hamlin on 10/16/2022 at 2:30 PM, at [address], in [place]. The appointment for Oct [address] Cartagena has been cancelled. Care Goals: Improvement in symptoms and stabilization are the goals. Assessment: The patient, and at bedside, understand and are agreeable with the plan. Additional Instructions or Follow Up instructions: If you have any new or worrisome symptoms, call your new PCP for advice, or go to a walk-in clinic, or come to the ER. Follow-Up Care: Outpatient Rehab - PT No Smoking: If you smoke, Please STOP! Call for help.
--- NOTE | 2022-10-11 13:37 | DISCHARGE SUMMARY ---
Discharge Summary Admit Date: 10/08/22 Discharge Date: 10/11/22 Discharging Provider: Dr Jacqueline Velásquez Primary Care Provider: Dr Brannon Hamlin Condition at Discharge: Stable Discharge Disposition: 01 Home, Self Care - HPI History of Present Illness: 81 y/o WM pt presents with generalized weakness and malaise that started about 3-4 days ago after returning from recent trip to [place]. he and his family stayed at a resort and drank bottled water and ate food what was served in good restaurants and well cooked. no outside food or street foods. no contact with animals or any other sick individuals. pt is up to date on his vaccines, and per , they only stayed in the "tourist-like" areas. pt denies any abdominal pain but has had occasional body aches. no diarrhea. no dysuria but he feels the urge to urinate more and urine is dark. no chest pain or sob. he does have a sore throat and reports feeling his tongue swollen. some cough, some nausea. no recent falls but states that he was so weak that he had difficulty lifting up his head from the bed earlier today. he denies feeling palpitations but his heart rate is 120 in Afib. - sepsis, given the leukocytosis, low BP, infection, tachycardia. unclear source at this time. viral panel NEG. strep test NEG. f/u lactate, cultures Cont empiric cipro and flagyl hepatitis panel pending check urine cultures supportive mgmt - transaminitis, unclear etiology, abd sono shows fatty liver and now obvious stones or evidence of cholecystitis, may also be d/t shock injury from low BPs check hepatitis panel thick / thin smears for malaria check CT abd/pelvis avoid hepatotoxins - new onset Afib check troponins cont telemetry start HR-controlling meds obtain Echo - generalized weakness, from above sepsis. CK is neg for rhabdomyolysis PT / OT eval and treat supportive mgmt -hyperglycemia, glucose in 180s, and he has h/o type 2 DM check a1c, tsh, lipid panel, diabetic diet, ss Insulin - pharyngitis, strep test NEG. suspect related to above sepsis and possibly viral in nature symptomatic mgmt - urinary frequency, denies dysuria, UA NEG continue with cipro and flagyl await urine cultures - HOSPITAL COURSE Hospital Course: (1) Sepsis Patient met sepsis criteria on admission with elevated white cell count, hypotension, hepatitis labs, and tachycardia. He still had fevers until 10/09. He was on iv fluids. His WBC declined on empiric Cipro, Flagyl. The source of his sepsis is still not known: Hepatitis A results were neg, but LFTs were still up and down. All cx were neg to date. At adm, the most likely source was thought to be the urine, given his urinary frequency, but U/A was unremarkable. And, given the elevated LFTs, a biliary source of infection such as choledocholithiasis or cholecystitis was considered and that is why Cipro and Flagyl were started (because of his PCN allergy). Malaria could also cause this constellation of symptoms and lab findings. The final thick and thin smear results for Malaria were still pending at discharge(this is a send-out lab). We later suspected a pulmonary source, when he had a persistent cough and had the pharyngitis. Chest CT imaging was done late in his stay and was read as having no PE, but read as having possible interstitial pneumonitis. He was discharged to finish the empiric course of oral Cipro & Falgyl plus a probiotic. Recommendation was to see his PCP soon, for follow-up of the above pending tests. (2) Pharyngitis Patient reported a bad sore throat at admission, and non-productive cough with trace of clear sputum production. Sputum cx returned unremarkable, only oral messi grew. (3) Interstitial pneumonitis Since his cough persisted and he had brief complaints of right shoulder pain, right ear pain and O2 saturation dropped to 91% day before [facility], a CTA of the chest was done. This showed: a thyroid nodule, no pulmonary emboli, small bilateral pleural effusions, mild diffuse interstitial thickening, posterior atelectasis, decreased R-sided lung volume due to eventration of the R hemidiaphragm, bronchial wall thickening, changes that could represent infectious bronchitis and interstitial pneumonitis. (4) Atrial fibrillation with rapid ventricular response Patient presented with new onset A-fib. TSH was normal. He was not SOB and not hypoxic, but had a cough. Diltiazem iv push was ordered and he converted from A- fib to NSR. Echo showed normal LV size and normal EF but there is RV enlargement and dilated IVC. He was discharged on- to maintain rate control and we discussed his [id number] score = 3 (age >75, male and Hx of DM). He was offered DOAC vs aspirin for stroke prophylaxis. He chose to take daily ASA 81 mg and wants to discuss anticoagulation with his (new) PCP. Given the new onset of Afib and findings of coronary atherosclerosis seen on chest CT, he was told he needs a stress test. (5) Cor Pulmonale A dilated RV and dilated IVC and pulm hypertension (PA pressure 49 mmHg) were se en on the Echo. In asking about any pulmonary diseases by history, the reported that he may have had sleep apnea but then he lost 50 pounds many years ago and has no further witnessed apnea. Otherwise there is no COPD, but he used to smoke but quit 35 years ago. CTA of chest was done and did show: heart size upper limits of normal, small to moderate pericardial effusion, and moderate coronary calcification. (6) Pericardial effusion A circumferential but small pericardial effusion was seen on Echo. Etiologies could be inflammatory (as with lupus or RA), malignant, hypothyroid (but his TSH was normal), and infectious. This pericardial effusion could be the cause of his R shoulder pain. He needs further W/U and management of this pericardial effusion. (7) Elevated LFTs Given the finding of Cor pulmonale and dilated IVC, we also considered passive liver congestion as the cause of elevated LFTs. He has no Hx of alcohol abuse. CT abd w/ contrast was done that showed normal liver, and non-obstructing bilateral intra-renal calculi. (8) Type 2 DM Patient's HbA1c is 6.5%. Patient takes metformin at home. We ordered ss Insulin and a diabetic diet while here. (9) Generalized weakness Patient was weak but participated with PT, he needed a walker. He qualifies for outpatient PT, if needed. (10) Thyroid nodule The CT report recommended a thyroid ultrasound as an outpatient for further evaluation. - ALLERGIES Allergies/Adverse Reactions: Allergies Allergy/AdvReac Type Severity Reaction Status Date / Time Penicillins Allergy Rash Verified 10/07/22 18:31 - MEDICATIONS Home Medications: Ambulatory Orders Medication Instructions Recorded Confirmed Cetirizine [ZyrTEC] 10 mg PO BID 10/08/22 10/08/22 Lisinopril [Zestril] 2.5 mg PO DAILY 10/08/22 10/08/22 Metformin HCl [Metformin ER 1,000 mg PO BID 10/08/22 10/08/22 Gastric] Simvastatin [Zocor] 40 mg PO QPM 10/08/22 10/08/22 allopurinoL [Allopurinol] 300 mg PO DAILY 10/08/22 10/08/22 diphenhydrAMINE [Benadryl] 25 mg PO BID 10/08/22 10/08/22 Aspirin EC [Ecotrin] 81 mg PO DAILY #30 tablet 10/11/22 Ciprofloxacin [Cipro] 250 mg PO BID #14 tab 10/11/22 Multivitamin [Theragran] 1 tab PO DAILYWM tab 10/11/22 Tamsulosin [Flomax] 0.4 mg PO DAILY cap 10/11/22 diltiaZEM CD [Cardizem Cd] 120 mg PO DAILY #30 cap 10/11/22 metroNIDAZOLE [Flagyl] 500 mg PO TID #21 tab 10/11/22 - PHYSICAL EXAM AT DISCHARGE General Appearance: positive: No acute distress, Alert Eyes Bilateral: positive: Normal inspection, No lid inflammation ENT: positive: ENT inspection nml, No signs of dehydration Neck: positive: Nml inspection, No JVD Respiratory: positive: No respiratory distress, Breath sounds nml, Other (Clearimg his throat recurrently) Cardiovascular: positive: Regular rate & rhythm, No murmur Abdomen: positive: Non-tender, Nml bowel sounds, No distention Skin: positive: Warm, Dry, Pallor Extremities: positive: Non-tender, No pedal edema Neurologic/Psychiatric: positive: Oriented x3, Motor nml - LABS Result Diagrams: 10/11/22 05:11 10/11/22 05:11 - FOLLOW UP Follow Up: See new PCP, Dr Brannon Hamlin, 10/16/22 at 1430. - TIME SPENT Time Spent in Discharge (Minutes): 55
[2022-10-11 15:32] VITALS: BP 112/60
[2022-10-11] MEDS ORDERED: iohexoL-300 100 ML VIAL IVP ONE (15:54)
[2022-10-13] MEDS ORDERED: iohexoL-300 100 ML VIAL IVP ONE (20:02)
== END 2022-10-11 15:32 | disposition home or self-care (01) | DRG 872 ==
LOC: EDUNIT# → ED 18:18 → MS2 10-08 00:43 → OBSVTOIN 10-09 13:43
PROVIDERS: ADMIT Student in an Organized Health Care Education/Training Program; ATTEND Internal Medicine
DX: A41.9 Sepsis, unspecified organism (principal); I31.39 Other pericardial effusion (noninflammatory); I27.29 Other secondary pulmonary hypertension; I10 Essential (primary) hypertension; I48.91 Unspecified atrial fibrillation; D64.9 Anemia, unspecified; I95.9 Hypotension, unspecified; R73.03 Prediabetes; D72.829 Elevated white blood cell count, unspecified; Z20.822 Contact with and (suspected) exposure to COVID-19; E04.1 Nontoxic single thyroid nodule; E11.9 Type 2 diabetes mellitus without complications; J02.9 Acute pharyngitis, unspecified; J84.89 Other specified interstitial pulmonary diseases; B97.89 Other viral agents as the cause of diseases classified elsewhere; M25.511 Pain in right shoulder; R35.0 Frequency of micturition; R53.1 Weakness; R74.01 Elevation of levels of liver transaminase levels; Z79.4 Long term (current) use of insulin; Z79.84 Long term (current) use of oral hypoglycemic drugs; Z87.891 Personal history of nicotine dependence
CPT/HCPCS: 36415; 71045; 71275; 74160; 74177; 76705; 80048; 80053; 80061; 80076; 81001; 81599; 82550; 83036; 83605; 83735; 84443; 84484; 85025; 86705; 86709; 86803; 87040; 87070; 87340; 87430; 87633; 93005; 93306; 96365; 96368; 96372; 96375; 97116; 97161; 97530; 99284; 99285; A9270; J1650; J7120; Q9967; 83721; 87086; 87207